=== PATIENT | male | born 1975 | race Hispanic/Latino ===

== ENCOUNTER 2024-01-01 13:02 | Emergency (ER) | payer OTHER, SELFPAY ==
[2024-01-01 14:27] LABS: % Basophils 0.4 % (0-2); % Eosinophils 0.9 % (0-6); % Immature Granulocytes 0.2 % (0-0.5); % Lymphocytes 28.7 % (20.5-51.1); % Monocytes 5.6 % (1.7-9.3); % Neutrophils 64.2 % (42.2-75.2); Absolute Lymphocytes 1.3 10^3/uL (1.2-3.4); Absolute Monocytes 0.3 10^3/uL (0.1-0.6); Absolute Neutrophils 2.9 10^3/uL (1.4-6.5); Hematocrit 43.3 % (39.0-52.0); Hemoglobin 14.9 g/dL (13.0-18.0); Mean Corp Hgb Conc. 34.4 g/dL (33.0-37.0); Mean Corpuscular Hgb 29.9 pg (27.0-31.0); Mean Corpuscular Volume 86.9 fL (80.0-94.0); Mean Platelet Volume 9.5 fL (7.4-10.4); Nucleated Red Blood Cells % 0 % (-); Platelet Count 183 10^3/uL (130-400); Red Blood Cell Count 4.98 10^6/uL (4.70-6.10); Red Cell Dist. Width 11.9 % (11.5-14.5); White Blood Cell Count 4.5 10^3/uL (4.8-10.8)
[2024-01-01 14:48] LABS: Blood Urea Nitrogen 16 mg/dl (9-20); Calcium 9.3 mg/dl (8.4-10.2); Carbon Dioxide 25 mmol/L (22-30); Chloride 104 mmol/L (98-107); Glucose 108 mg/dl (70-99); Sodium 134 mmol/L (135-145); eGFR > 60.00
[2024-01-01 14:50] VITALS: BP 148/96
[2024-01-01] MEDS: NSS 500 IV ×2 (15:27→17:34)
[2024-01-01] MEDS: ZOFRAN 4 MG IV (15:27)
--- NOTE | 2024-01-01 17:51 | ED.GENMED ---
History of Present Illness
General
Chief Complaint: Dizziness
Source: patient
Exam Limitations: none
Time Seen by Provider: 01/01/24 15:25
Nursing documentation reviewed up to this point in time: agreed with
Travel History
Have you had any contact with someone who has COVID-19?: No
Do you have any symptoms of coronavirus? Fever > 100 degrees, chills, cough, shortness of breath, sore throat, loss of taste or smell, muscle aches, or headache?: No
History of Present Illness
History of Present Illness:
Patient who has been painting outdoors for the past 3 days, presents to ED secondary to intermittent dizziness, along with nausea sensation over the past 24 hours. Denies headache. Denies chest pain or shortness of breath. Denies vomiting or
diarrhea. Denies loss of appetite. Denies fever or chills. Denies recent illness. Denies sick contact. Patient states that he has been exposed to increased dust. Patient otherwise is healthy without any significant past medical history.
Patient feels as though he probably has not been drinking enough water.
Review of Systems
Review of Systems
Allergies reviewed?: Yes
All Other Systems: ROS reviewed and negative except as documented in HPI and ROS
Constitutional: Reports no symptoms; Denies fever
EENT: Reports no symptoms
Respiratory: Reports no symptoms; Denies cough
Cardiac: Reports no symptoms; Denies chest pain
ABD/GI: Reports nausea; Denies vomiting or diarrhea
Musculoskeletal: Reports no symptoms
Skin: Reports no symptoms
Neurological: Reports dizzy; Denies headache or weakness
Phy Exam
Physical Exam
Physical Exam:
Physical Exam
General: no apparent distress, not acutely ill. afebrile
Head: nc/at. eomi
Neck: supple. no meningeal signs.
Heart: s1/s2 regular rate and rhythm, no murmur. equal radial pulses.
Lungs: no acute respiratory distress. clear bilaterally
Abdomen: normal bowel sounds. not tender.
Neuro: alert and oriented. no focal neurological deficits
Skin: no rash
Psychiatric: well kept. interactive and cooperative
Extremities: no edema. no calf tenderness.
Course
Orders/Labs/Results
Orders:
Orders
01/01/24 14:15
Basic Metabolic Panel Urgent
Complete Blood Count/With Diff Urgent
01/01/24 15:25
Ondansetron Injectable [Zofran] 4 mg .ROUTE .STK-MED ONE
01/01/24 15:26
0.9% Sodium Chloride 500 ml [Nss] 500 ml IV BOLUS
Ondansetron Injectable [Zofran] 4 mg IV NOW STA
01/01/24 17:22
0.9% Sodium Chloride 500 ml [Nss] 500 ml IV BOLUS
Abnormal Lab Results
01/01/24
14:15
WBC 4.5 L 10^3/uL
(4.8-10.8)
Sodium 134 L mmol/L
(135-145)
Glucose 108 H mg/dl
(70-99)
01/01/24 14:15
01/01/24 14:15
Vital Signs
Initial and Last Documented VS:
Initial Vital Signs
Temp Pulse Resp Pulse Ox
98.2 F 72 16 100
01/01/24 13:08 01/01/24 13:08 01/01/24 13:08 01/01/24 13:08
Last Documented Vital Signs
Temp Pulse Resp BP Pulse Ox
98.2 F 72 18 148/96 99
01/01/24 13:08 01/01/24 14:50 01/01/24 14:50 01/01/24 14:50 01/01/24 14:50
MDM/Problems Addressed
MDM/Problems Addressed:
History and exam consistent with likely mild dehydration, triggering patient's presenting symptoms. Otherwise, patient is afebrile, hemodynamically stable, and neurologically intact. Patient will be discharged home in stable condition, with
recommendation to continue hydration at home along with PCP follow-up as an outpatient.
*Critical Care Note
Total Time (30-74mins, 75-104mins- exclusive of procedures): Not Applicable
ED Attending Note
-
Portions of this chart may have been created with voice recognition software.� Occasional wrong word or��sound alike� substitutions may have occurred due to the inherent limitations of voice recognition software.
Discharge Plan
Departure
Patient Disposition: Home (Routine Discharge)
Date of Disposition: 01/01/24
Time of Disposition: 17:54
Patient with high blood pressure during this ER visit?: Yes
Condition: Good
Discharge Problem:
Dizzinesses, Dehydration, mild
Instructions: Dehydration, Adult ED, Dizziness
Referrals:
Bar Omalley MD [Family Provider] -
Activity Restrictions/Additional Instructions:
As discussed, please follow-up with your primary care physician with any further concerns.
Interventions
Interventions:
*Risk Screen - Suicide Last Done: 01/01/24 14:46
*General Assessment Last Done: 01/01/24 14:46
*Neglect/Abuse Screening Last Done: 01/01/24 14:46
ED- Fall Risk Assessment Last Done: 01/01/24 18:36
*Nursing Disposition Last Done: 01/01/24 18:36
ED- Neurological Assessment Last Done: 01/01/24 14:46
Discharge Date and Time
Discharge Date/Time: 01/01/24 18:42
Print Language: ESTONIAN
== END 2024-01-01 18:42 | disposition home or self-care (01) ==
LOC: EMR 13:02
PROVIDERS: EMERGENCY PHYSICIAN Emergency Medicine; FAMILY PHYSICIAN Family Medicine
DX: E86.0 Dehydration (principal); R03.0 Elevated blood-pressure reading, without diagnosis of hypertension
CPT/HCPCS: 99284; 96374; 96361; 80048; 85025